=== PATIENT | female | born 1950 | race African-American/Black ===

== ENCOUNTER 2017-04-13 07:57 | Emergency (ER) | payer MEDICAID ==
[~2017-04-13] VITALS: Ht 182.9 cm; Wt 87.5 kg
[~2017-04-13 07:57] MED LIST: INSLANTI SC; METO-5 PO
[2017-04-13 08:55] VITALS: BP 200/77
[2017-04-13] MEDS ORDERED: HYDROcodone-ACET 5/325MG TAB PO ONE (09:15)
== END 2017-04-13 09:31 | disposition home or self-care (01) ==
LOC: ER 07:57
DX: S83.91XA Sprain of unspecified site of right knee, initial encounter (principal); I10 Essential (primary) hypertension; J45.909 Unspecified asthma, uncomplicated; E11.9 Type 2 diabetes mellitus without complications; F17.210 Nicotine dependence, cigarettes, uncomplicated; W10.9XXA Fall (on) (from) unspecified stairs and steps, initial encounter; Y93.89 Activity, other specified; Y92.89 Other specified places as the place of occurrence of the external cause; Y99.8 Other external cause status; Z88.6 Allergy status to analgesic agent
CPT/HCPCS: 73562

== ENCOUNTER 2017-08-11 06:10 | Inpatient (IN) | payer MEDICAID ==
[~2017-08-11] VITALS: Ht 170.2 cm; Wt 88.5 kg
[2017-08-11 07:03] LABS: Basophils # (auto) 0 uL; Basophils % (auto) 0.6 % (0.0-2.0); Eosinophils # (auto) 0.2 uL; Eosinophils % (auto) 2.7 % (0.0-7.0); Hematocrit 40.3 % (36.0-46.0); Hemoglobin 13.4 g/dL (12.2-16.2); Lymphocytes # (auto) 1.7 uL; Lymphocytes % (auto) 22.7 % (10.0-50.0); Mean Corpuscular Hgb Conc. 33.1 g/dL (32.0-36.0); Mean Corpuscular Volume 93.7 fL (80.0-100.0); Monocytes # (auto) 0.4 uL; Monocytes % (auto) 5.5 % (0.0-12.0); Neutrophils # (auto) 5.3 uL; Neutrophils % (auto) 68.5 % (37.0-80.0); Nucleated Red Blood Cells % 0.1 %; Platelet Count (auto) 245 10^3/uL (140-450); Red Blood Cells 4.31 10^6/uL (4.0-5.20); Red Cell Distribution Width 12.9 % (11.8-14.3); White Blood Cell 7.7 10^3/uL (4.4-10.8)
[2017-08-11 07:33] LABS: Albumin 2.6 g/dL (3.4-5.0); Bilirubin, Total 0.6 mg/dL (0.2-1.0); Calcium 8.2 mg/dL (8.5-10.1); Magnesium 2.4 mg/dL (1.6-2.6); Potassium 3.7 mmol/L (3.5-5.1); Total Protein 6.8 g/dL (6.4-8.2)
[2017-08-11] MEDS ORDERED: SODIUM CHLORIDE 0.9% 1,000 ML IV ONE ×2 (07:42)
[2017-08-11] MEDS ORDERED: cefTRIAXone W LIDOCAINE 1 GM IM IM ONE (07:45)
[2017-08-11] MEDS ORDERED: ENOXAPARIN SOD 100 MG/1 ML SYRINGE SC ONE (07:45)
[2017-08-11] MEDS ORDERED: ASPirin 81 mg TAB PO ONE (07:45)
[2017-08-11] MEDS ORDERED: cefTRIAXone 1GM/10ml IVPUSH 10 ML IV ONE (08:30)
[2017-08-11 08:31] LABS: INR 0.91 (0.9-1.15); Partial Thromboplastin Time 26.7 sec (22.64-33.71); Prothrombin Time 9.9 sec (9.37-12.3)
[2017-08-11] MEDS ORDERED: LORazepam 0.5 MG TAB PO PRN (10:00)
[2017-08-11] MEDS ORDERED: TEMAZEPAM 15 MG CAP PO PRN (10:00)
[2017-08-11] MEDS ORDERED: LACTULOSE 20Gm/30ML SOLN PO PRN (10:00)
[2017-08-11] MEDS ORDERED: NITROGLYCERIN 0.4 MG SL TAB SL PRN (10:00)
[2017-08-11] MEDS ORDERED: PROMETHAZINE HCL 25 MG/ML 1ML IV PRN (10:00)
[2017-08-11] MEDS ORDERED: DEXTROSE (50%) 50ML SYRG IV PRN (10:00)
[2017-08-11] MEDS ORDERED: MORPHINE SULFATE 4 MG/ML SYR/VIAL IV PRN ×2 (10:00)
[2017-08-11] MEDS ORDERED: cloNIDine HCL 0.1 MG TAB PO ONE (10:15)
[2017-08-11] MEDS: NITROGLYCERIN 0.2MG/HR TOPICAL PATCH TD SCH (10:19)
[2017-08-11] MEDS: PANTOPRAZOLE 40 MG TAB PO SCH (10:19)
[2017-08-11] MEDS: ENALAPRIL MALEATE 10 MG TAB PO SCH (10:19)
[2017-08-11 11:07] LABS: CRP High Sensitivity 0.86 mg/dL (< 0.3)
[2017-08-11] MEDS: InsuLIN REG 1unit/0.01ml Soln (100units/ml) SC SCH ×3 (11:19→22:00)
[2017-08-11] MEDS: ACCU-CHEK COMFORT CURVE STRIP VI SCH ×3 (11:19→22:00)
[2017-08-11] MEDS ORDERED: hydrALAZINE HCL 20 MG/ML VL IV ONE (11:30)
[2017-08-11] MEDS ORDERED: hydrALAZINE HCL 20 MG/ML VL IV PRN ×2 (11:30)
[2017-08-11 11:55] LABS: Folate (Folic Acid) 10.1 ng/mL (5.38-24)
[2017-08-11] MEDS: SODIUM CHLOR 0.9% PF (SALINE LOCK) 10ML VIAL IV SCH ×3 (14:12→23:31)
[2017-08-11] MEDS: ATORVASTATIN 20 MG TAB PO SCH (22:00)
[2017-08-11] MEDS: ENOXAPARIN SOD 80 MG/0.8ML SYRINGE SC SCH (22:00)
[2017-08-12 00:50] LABS: Urine Bacteria FEW /hpf (None Seen); Urine Blood Negative /uL (Negative); Urine Specific Gravity 1.003 (1.001-1.035); Urine WBC 2 /hpf (0 - 5)
[2017-08-12 01:09] LABS: Alcohol, Urine < 3.0 mg/dL (0-5); Amphetamine Screen, Urine NEGATIVE (NEGATIVE); Barbiturate Scree,Urine NEGATIVE (NEGATIVE); Benzodiazephine Screen, Urine NEGATIVE (NEGATIVE); Cannabinoid Screen, Urine NEGATIVE (NEGATIVE); Cocaine Screen, Urine NEGATIVE (NEGATIVE); Opiate Scree,Urine NEGATIVE (NEGATIVE); Phencyclidine Screen, Urine NEGATIVE (NEGATIVE)
[2017-08-12] MEDS: MORPHINE SULFATE 4 MG/ML SYR/VIAL IV PRN ×2 (05:32→15:28)
[2017-08-12 06:32] LABS: Basophils # (auto) 0 uL; Basophils % (auto) 0.5 % (0.0-2.0); Eosinophils # (auto) 0.1 uL; Eosinophils % (auto) 1.5 % (0.0-7.0); Hematocrit 39.8 % (36.0-46.0); Hemoglobin 13.3 g/dL (12.2-16.2); Lymphocytes # (auto) 1.5 uL; Lymphocytes % (auto) 20.4 % (10.0-50.0); Mean Corpuscular Hemoglobin 31.2 pg (28.0-32.0); Mean Corpuscular Hgb Conc. 33.5 g/dL (32.0-36.0); Mean Corpuscular Volume 93.2 fL (80.0-100.0); Monocytes # (auto) 0.4 uL; Neutrophils # (auto) 5.5 uL; Neutrophils % (auto) 72.6 % (37.0-80.0); Nucleated Red Blood Cells % 0.1 %; Platelet Count (auto) 228 10^3/uL (140-450); Red Blood Cells 4.27 10^6/uL (4.0-5.20); Red Cell Distribution Width 12.8 % (11.8-14.3); White Blood Cell 7.5 10^3/uL (4.4-10.8)
[2017-08-12 06:54] LABS: Albumin 2.7 g/dL (3.4-5.0); BUN/Creatinine Ratio 10.3; Bilirubin, Total 0.8 mg/dL (0.2-1.0); Potassium 3.6 mmol/L (3.5-5.1); Total Protein 6.8 g/dL (6.4-8.2)
[2017-08-12] MEDS: InsuLIN REG 1unit/0.01ml Soln (100units/ml) SC SCH ×4 (07:00→21:43)
[2017-08-12] MEDS: ACCU-CHEK COMFORT CURVE STRIP VI SCH ×4 (07:00→21:43)
[2017-08-12] MEDS: ENALAPRIL MALEATE 10 MG TAB PO SCH (10:05)
[2017-08-12] MEDS: ENOXAPARIN SOD 80 MG/0.8ML SYRINGE SC SCH ×2 (10:05→21:27)
[2017-08-12] MEDS: NITROGLYCERIN 0.2MG/HR TOPICAL PATCH TD SCH (10:05)
[2017-08-12] MEDS: PANTOPRAZOLE 40 MG TAB PO SCH (10:05)
[2017-08-12] MEDS: SODIUM CHLOR 0.9% PF (SALINE LOCK) 10ML VIAL IV SCH ×2 (14:18→21:27)
[2017-08-12 17:00] VITALS: BP 156/84
[2017-08-12 17:26] VITALS: BP 156/84
[2017-08-12 20:16] VITALS: BP 149/78
[2017-08-12] MEDS: ATORVASTATIN 20 MG TAB PO SCH (21:27)
[2017-08-13] VITALS (7 sets, daily range): BP systolic 145–179; BP diastolic 60–81
[2017-08-13] MEDS: SODIUM CHLOR 0.9% PF (SALINE LOCK) 10ML VIAL IV SCH ×3 (06:21→21:57)
[2017-08-13] MEDS: ACCU-CHEK COMFORT CURVE STRIP VI SCH ×4 (06:24→21:57)
[2017-08-13] MEDS: InsuLIN REG 1unit/0.01ml Soln (100units/ml) SC SCH ×4 (06:27→21:57)
[2017-08-13] MEDS: ENALAPRIL MALEATE 10 MG TAB PO SCH (09:42)
[2017-08-13] MEDS: PANTOPRAZOLE 40 MG TAB PO SCH (09:42)
[2017-08-13] MEDS: NITROGLYCERIN 0.2MG/HR TOPICAL PATCH TD SCH (09:42)
[2017-08-13] MEDS: ENOXAPARIN SOD 80 MG/0.8ML SYRINGE SC SCH ×2 (09:43→21:57)
[2017-08-13] MEDS ORDERED: LORazepam 0.5 MG TAB PO ONE (12:15)
[2017-08-13] MEDS ORDERED: LORazepam 0.5 MG TAB PO PRN (12:15)
[2017-08-13] MEDS: ATORVASTATIN 20 MG TAB PO SCH (21:57)
[2017-08-14 05:00] VITALS: BP 164/77
[2017-08-14] MEDS: SODIUM CHLOR 0.9% PF (SALINE LOCK) 10ML VIAL IV SCH (05:43)
[2017-08-14] MEDS: ACCU-CHEK COMFORT CURVE STRIP VI SCH ×2 (07:00→11:38)
[2017-08-14] MEDS: InsuLIN REG 1unit/0.01ml Soln (100units/ml) SC SCH ×2 (07:00→11:38)
[2017-08-14 09:00] VITALS: BP 154/76
[2017-08-14] MEDS ORDERED: ADENOSINE 74 MG in GIVE UN-DILUTED 0 ML IV ONE (09:15)
[2017-08-14] MEDS ORDERED: ALBUTEROL SULF 2.5 MG/0.5ML(0.5%) NEB SOLN ONE (09:27)
[2017-08-14] MEDS ORDERED: IPRATROPIUM BROM 0.5 MG/2.5ML INH SOL ONE (09:27)
[2017-08-14] MEDS ORDERED: ASPirin 81 mg TAB PO SCH (10:00)
[2017-08-14] MEDS: ENALAPRIL MALEATE 10 MG TAB PO SCH (10:00)
[2017-08-14] MEDS: NITROGLYCERIN 0.2MG/HR TOPICAL PATCH TD SCH (10:00)
[2017-08-14] MEDS: PANTOPRAZOLE 40 MG TAB PO SCH (10:00)
[2017-08-14] MEDS: ENOXAPARIN SOD 80 MG/0.8ML SYRINGE SC SCH (10:00)
[2017-08-14] MEDS ORDERED: cloNIDine HCL 0.1 MG TAB ONE (10:04)
[2017-08-14 10:10] VITALS: BP 188/137
[2017-08-14 12:00] VITALS: BP 145/57
[2017-08-14 12:23] VITALS: BP 188/137
== END 2017-08-14 13:30 | disposition home or self-care (01) | DRG 199 ==
LOC: ER 06:10 → TELE 06:11 → DOU IN ICU 08-12 17:01 → TELE-EAST 08-13 13:07
PROVIDERS: ADMIT Internal Medicine; ATTEND Internal Medicine
DX: I16.0 Hypertensive urgency (principal); I24.9 Acute ischemic heart disease, unspecified; I50.1 Left ventricular failure, unspecified; E44.0 Moderate protein-calorie malnutrition; E11.22 Type 2 diabetes mellitus with diabetic chronic kidney disease; I13.0 Hypertensive heart and chronic kidney disease with heart failure and stage 1 through stage 4 chronic kidney disease, or unspecified chronic kidney disease; N18.3 Chronic kidney disease, stage 3 (moderate); F41.1 Generalized anxiety disorder; F17.210 Nicotine dependence, cigarettes, uncomplicated; F41.9 Anxiety disorder, unspecified; I25.10 Atherosclerotic heart disease of native coronary artery without angina pectoris; K59.00 Constipation, unspecified; G47.00 Insomnia, unspecified; I49.3 Ventricular premature depolarization; J45.909 Unspecified asthma, uncomplicated; Z82.49 Family history of ischemic heart disease and other diseases of the circulatory system; Z83.3 Family history of diabetes mellitus; Z88.8 Allergy status to other drugs, medicaments and biological substances; Z88.6 Allergy status to analgesic agent; Z79.4 Long term (current) use of insulin; Z90.89 Acquired absence of other organs; Z68.30 Body mass index [BMI] 30.0-30.9, adult
CPT/HCPCS: 36415; 70450; 71045; 80053; 80061; 80307; 81001; 82550; 82607; 82746; 82962; 83036; 83735; 83880; 84443; 84484; 85025; 85379; 85610; 85652; 85730; 86141; 87081; 93005; 93017; 93306; 93886; 96361; 96374; J0153; J0696; J1815

== ENCOUNTER 2018-03-24 16:31 | Emergency (ER) | payer MEDICAID, OTHER ==
[~2018-03-24] VITALS: Ht 182.9 cm; Wt 83.9 kg
[2018-03-24 18:40] VITALS: BP 194/67
[2018-03-26] MEDS ORDERED: LORA-654 PO (16:36)
[2018-03-26] MEDS ORDERED: POTA10TA51 PO (16:36)
[2018-03-26] MEDS ORDERED: ENAL5TAB85 PO (16:36)
[2018-03-26] MEDS ORDERED: ASPI-231 PO (16:36)
[2018-03-26] MEDS ORDERED: ENA2.5T PO (16:36)
== END 2018-03-25 00:13 | disposition left against medical advice (07) ==
LOC: ER 16:40
DX: R05 Cough (principal); Z53.21 Procedure and treatment not carried out due to patient leaving prior to being seen by health care provider

== ENCOUNTER 2018-03-26 09:41 | Inpatient (IN) | payer OTHER, MEDICAID ==
[~2018-03-26] VITALS: Ht 172.7 cm; Wt 91.8 kg
[2018-03-26] MEDS ORDERED: ALBUTEROL SULF 2.5 MG/0.5ML(0.5%) NEB SOLN NEB ONE (10:15)
[2018-03-26] MEDS ORDERED: methylPREDNISolone SOD SUCC 125 MG/2 ML VL IM ONE (10:15)
[2018-03-26] MEDS ORDERED: IPRATROPIUM BROM 0.5 MG/2.5ML INH SOL NEB ONE (10:15)
[2018-03-26] MEDS ORDERED: cefTRIAXone SOD 1,000 MG VL IM ONE (10:45)
[2018-03-26] MEDS ORDERED: cloNIDine HCL 0.1 MG TAB ONE (10:47)
[2018-03-26 10:50] LABS: Basophils # (auto) 0 uL; Basophils % (auto) 0.4 % (0.0-2.0); Eosinophils # (auto) 0.1 uL; Eosinophils % (auto) 1.4 % (0.0-7.0); Hematocrit 38.6 % (36.0-46.0); Hemoglobin 13.1 g/dL (12.2-16.2); Lymphocytes # (auto) 1.3 uL; Lymphocytes % (auto) 17.2 % (10.0-50.0); Mean Corpuscular Hemoglobin 31.7 pg (28.0-32.0); Mean Corpuscular Hgb Conc. 33.8 g/dL (32.0-36.0); Mean Corpuscular Volume 93.5 fL (80.0-100.0); Monocytes # (auto) 0.5 uL; Monocytes % (auto) 7.1 % (0.0-12.0); Neutrophils # (auto) 5.7 uL; Neutrophils % (auto) 73.9 % (37.0-80.0); Platelet Count (auto) 233 10^3/uL (140-450); Red Blood Cells 4.12 10^6/uL (4.0-5.20); Red Cell Distribution Width 12.4 % (11.8-14.3); White Blood Cell 7.7 10^3/uL (4.4-10.8)
[2018-03-26 11:00] LABS: Albumin 2.8 g/dL (3.4-5.0); Calcium 8.5 mg/dL (8.5-10.1); Magnesium 2.2 mg/dL (1.6-2.6); Potassium 3.5 mmol/L (3.5-5.1)
[2018-03-26 11:08] LABS: BUN/Creatinine Ratio 7.7; Bilirubin, Total 0.9 mg/dL (0.2-1.0); Total Protein 7.5 g/dL (6.4-8.2)
[2018-03-26] MEDS ORDERED: ENOXAPARIN SOD 80 MG/0.8ML SYRINGE SC ONE (11:15)
[2018-03-26] MEDS ORDERED: ZOLPIDEM TARTRATE 5 MG TAB PO PRN (12:00)
[2018-03-26] MEDS ORDERED: NITROGLYCERIN 0.4 MG SL TAB SL PRN ×2 (12:00)
[2018-03-26] MEDS ORDERED: ONDANSETRON HCL 4 MG/2 ML VIAL IV PRN (12:00)
[2018-03-26] MEDS ORDERED: amLODIPine BESYLATE 5 MG TAB PO ONE (12:00)
[2018-03-26] MEDS ORDERED: DEXTROSE (50%) 50ML SYRG IV PRN (12:00)
[2018-03-26] MEDS: Glucerna Carbsteady SHAKE Vanilla 8oz PO SCH ×2 (12:00→18:27)
[2018-03-26] MEDS ORDERED: MORPHINE SULFATE 4 MG/ML SYR/VIAL IV PRN ×2 (12:00)
[2018-03-26] MEDS ORDERED: ALUM & MAG HYDROX-SIMETH LIQ(MAALOX) 30 ML PO ONE (12:00)
[2018-03-26] MEDS ORDERED: TRIAMTERENE/HCTZ 37.5/25 MG CAP/TAB PO ONE (12:15)
[2018-03-26 13:32] LABS: Urine Bacteria FEW /hpf (None Seen); Urine Blood Negative /uL (Negative); Urine Hyaline Cast FEW /lpf (0 - 2); Urine Specific Gravity 1.017 (1.001-1.035); Urine WBC 3 /hpf (0 - 5)
[2018-03-26] MEDS: SODIUM CHLOR 0.9% PF (SALINE LOCK) 10ML VIAL/SYR IV SCH ×2 (14:08→21:19)
[2018-03-26 14:15] VITALS: BP 160/75
[2018-03-26 16:00] VITALS: BP_SYST 146; BP_DIAS 42; BP_DIAS 62
[2018-03-26] MEDS ORDERED: LORA-654 PO (16:36)
[2018-03-26] MEDS ORDERED: ENA2.5T PO (16:36)
[2018-03-26] MEDS ORDERED: ENAL5TAB85 PO (16:36)
[2018-03-26] MEDS ORDERED: POTA10TA51 PO (16:36)
[2018-03-26] MEDS ORDERED: ASPI-231 PO (16:36)
[2018-03-26] MEDS: ACCU-CHEK COMFORT CURVE STRIP VI SCH ×2 (17:00→21:27)
[2018-03-26] MEDS: InsuLIN REG 1unit/0.01ml Soln (100units/ml) SC SCH ×2 (17:00→21:31)
[2018-03-26 17:18] VITALS: BP 146/42
[2018-03-26] MEDS: ALBUTEROL SULF 2.5 MG/0.5ML(0.5%) NEB SOLN NEB SCH (18:14)
[2018-03-26] MEDS: IPRATROPIUM BROM 0.5 MG/2.5ML INH SOL NEB SCH (18:15)
[2018-03-26 20:00] VITALS: BP 162/68
[2018-03-26] MEDS: CARVEDILOL 3.125 MG TAB PO SCH (21:20)
[2018-03-26] MEDS: ATORVASTATIN 20 MG TAB PO SCH (21:20)
[2018-03-26] MEDS: ENOXAPARIN SOD 80 MG/0.8ML SYRINGE SC SCH (21:21)
[2018-03-26] MEDS: ENALAPRIL MALEATE 2.5 MG TAB PO SCH (21:21)
[2018-03-26 23:54] VITALS: BP 150/54
[2018-03-27] MEDS: IPRATROPIUM BROM 0.5 MG/2.5ML INH SOL NEB SCH ×4 (00:19→19:11)
[2018-03-27] MEDS: ALBUTEROL SULF 2.5 MG/0.5ML(0.5%) NEB SOLN NEB SCH ×4 (00:19→19:10)
[2018-03-27] MEDS ORDERED: IBUPROFEN 600 MG TAB PO PRN (01:45)
[2018-03-27] MEDS: LORazepam 0.5 MG TAB PO PRN ×2 (02:51→22:15)
[2018-03-27 04:00] VITALS: BP 158/66
[2018-03-27] MEDS: ACCU-CHEK COMFORT CURVE STRIP VI SCH ×4 (06:36→23:20)
[2018-03-27] MEDS: SODIUM CHLOR 0.9% PF (SALINE LOCK) 10ML VIAL/SYR IV SCH ×3 (06:36→22:00)
[2018-03-27] MEDS: InsuLIN REG 1unit/0.01ml Soln (100units/ml) SC SCH ×4 (06:41→23:19)
[2018-03-27 06:44] LABS: Basophils # (auto) 0 uL; Basophils % (auto) 0.1 % (0.0-2.0); Eosinophils # (auto) 0 uL; Hematocrit 34.9 % (36.0-46.0); Hemoglobin 11.8 g/dL (12.2-16.2); Lymphocytes # (auto) 0.7 uL; Lymphocytes % (auto) 7.4 % (10.0-50.0); Mean Corpuscular Hemoglobin 31.7 pg (28.0-32.0); Mean Corpuscular Hgb Conc. 33.9 g/dL (32.0-36.0); Mean Corpuscular Volume 93.6 fL (80.0-100.0); Monocytes # (auto) 0.4 uL; Monocytes % (auto) 4.7 % (0.0-12.0); Neutrophils # (auto) 8.1 uL; Neutrophils % (auto) 87.8 % (37.0-80.0); Nucleated Red Blood Cells % 0.1 %; Platelet Count (auto) 216 10^3/uL (140-450); Red Blood Cells 3.73 10^6/uL (4.0-5.20); Red Cell Distribution Width 12.5 % (11.8-14.3); White Blood Cell 9.2 10^3/uL (4.4-10.8)
[2018-03-27 07:00] LABS: Albumin 2.1 g/dL (3.4-5.0); BUN/Creatinine Ratio 16.4; Calcium 8.3 mg/dL (8.5-10.1); Magnesium 1.8 mg/dL (1.6-2.6); Potassium 4.3 mmol/L (3.5-5.1)
[2018-03-27 07:05] LABS: Bilirubin, Total 0.4 mg/dL (0.2-1.0); Total Protein 6.3 g/dL (6.4-8.2)
[2018-03-27 08:00] VITALS: BP 167/77
[2018-03-27] MEDS: Glucerna Carbsteady SHAKE Vanilla 8oz PO SCH ×3 (08:10→17:52)
[2018-03-27] MEDS: cloNIDine HCL 0.1 MG TAB PO PRN (08:14)
[2018-03-27] MEDS: ENALAPRIL MALEATE 2.5 MG TAB PO SCH (09:39)
[2018-03-27] MEDS: CARVEDILOL 3.125 MG TAB PO SCH (09:40)
[2018-03-27] MEDS: ENOXAPARIN SOD 80 MG/0.8ML SYRINGE SC SCH ×2 (09:40→22:00)
[2018-03-27] MEDS: DOCUSATE SOD 100 MG CAP PO SCH (09:41)
[2018-03-27] MEDS: CLOPIDOGREL BISULFATE 75 MG TAB PO SCH (09:41)
[2018-03-27] MEDS: ASPirin 81 mg TAB PO SCH (09:41)
[2018-03-27] MEDS: TRIAMTERENE/HCTZ 37.5/25 MG CAP/TAB PO SCH (09:47)
[2018-03-27] MEDS ORDERED: amLODIPine BESYLATE 5 MG TAB PO SCH (10:00)
[2018-03-27] MEDS ORDERED: LIDOCAINE 2%HCL (LOCAL ANESTH.) INJ 20ML MDV ONE (10:35)
[2018-03-27] MEDS ORDERED: IODIXANOL 320MG/ML 100ML BTL IV ONE (10:35)
[2018-03-27] MEDS ORDERED: ACETYLCYSTEINE ORAL for CIN 20%(200MG/ML) 4ML PO ONE (10:45)
[2018-03-27] MEDS ORDERED: diphenhdrAMINE HCL 50 MG/1 ML VL IV ONE (10:45)
[2018-03-27] MEDS: SODIUM BICARBONATE 50ML VIAL 75 ML in D5W 5% 1,000 ML IV SCH (11:19)
[2018-03-27] MEDS ORDERED: fentaNYL CITRATE 100 MCG/2 ML VL ONE (12:11)
[2018-03-27] MEDS ORDERED: MIDAZOLAM HCL 1MG/1ML-2 ML VIAL ONE (12:11)
[2018-03-27] MEDS ORDERED: VERAPAMIL 2.5MG/ML INJ 2ML VIAL IV ONE (12:11)
[2018-03-27] MEDS ORDERED: SODIUM CHL 0.9% 0 ML ONE (12:11)
[2018-03-27] MEDS ORDERED: ANGIOMAX 250 MG VIAL IV ONE (12:11)
[2018-03-27 12:21] LABS: INR 0.91 (0.9-1.15); Partial Thromboplastin Time 30.7 sec (23.78-33.04); Prothrombin Time 9.8 sec (9.27-12.13)
[2018-03-27] MEDS ORDERED: HEPARIN SODIUM (PORCINE) 5000 UNITS/ML 1ML VIAL ONE (12:29)
[2018-03-27 15:59] VITALS: BP 145/51
[2018-03-27 19:50] VITALS: BP 142/45
[2018-03-27 21:00] VITALS: BP 152/63
[2018-03-27] MEDS ORDERED: ENALAPRIL MALEATE 2.5 MG TAB PO SCH (22:00)
[2018-03-27] MEDS: ATORVASTATIN 20 MG TAB PO SCH (22:00)
[2018-03-27] MEDS: ACETYLCYSTEINE ORAL for CIN 20%(200MG/ML) 4ML PO SCH (22:00)
[2018-03-28] MEDS: ALBUTEROL SULF 2.5 MG/0.5ML(0.5%) NEB SOLN NEB SCH ×3 (00:43→11:55)
[2018-03-28] MEDS: IPRATROPIUM BROM 0.5 MG/2.5ML INH SOL NEB SCH ×3 (00:44→11:55)
[2018-03-28 01:00] VITALS: BP 163/83
[2018-03-28 02:00] VITALS: BP 171/69
[2018-03-28] MEDS: cloNIDine HCL 0.1 MG TAB PO PRN (02:09)
[2018-03-28 03:10] VITALS: BP 172/67
[2018-03-28] MEDS: LORazepam 0.5 MG TAB PO PRN (03:17)
[2018-03-28] MEDS: SODIUM CHLOR 0.9% PF (SALINE LOCK) 10ML VIAL/SYR IV SCH ×2 (06:00→14:00)
[2018-03-28] MEDS: ACCU-CHEK COMFORT CURVE STRIP VI SCH ×2 (07:00→11:30)
[2018-03-28] MEDS: InsuLIN REG 1unit/0.01ml Soln (100units/ml) SC SCH ×2 (07:00→12:00)
[2018-03-28 08:00] VITALS: BP 155/67
[2018-03-28] MEDS: SODIUM BICARBONATE 50ML VIAL 75 ML in D5W 5% 1,000 ML IV SCH ×2 (08:15→12:25)
[2018-03-28] MEDS: Glucerna Carbsteady SHAKE Vanilla 8oz PO SCH ×2 (08:30→12:26)
[2018-03-28] MEDS ORDERED: NIFEdipine ER 30 MG TAB PO ONE (09:00)
[2018-03-28] MEDS ORDERED: amLODIPine BESYLATE 5 MG TAB PO SCH (10:00)
[2018-03-28] MEDS ORDERED: METOPROLOL SUCCINATE XL 50 MG TAB PO SCH (10:00)
[2018-03-28] MEDS: CLOPIDOGREL BISULFATE 75 MG TAB PO SCH (10:27)
[2018-03-28] MEDS: ASPirin 81 mg TAB PO SCH (10:27)
[2018-03-28] MEDS: DOCUSATE SOD 100 MG CAP PO SCH (10:27)
[2018-03-28] MEDS: ACETYLCYSTEINE ORAL for CIN 20%(200MG/ML) 4ML PO SCH (10:28)
[2018-03-28] MEDS: ENOXAPARIN SOD 80 MG/0.8ML SYRINGE SC SCH (10:28)
[2018-03-28] MEDS: TRIAMTERENE/HCTZ 37.5/25 MG CAP/TAB PO SCH (10:28)
[2018-03-28] MEDS ORDERED: INFLUENZA QUAD 2018-2019 0.5 ML SYRG IM ONE (10:45)
[2018-03-28] MEDS ORDERED: PNEUMOCOCCAL VACC POLYS 25 MCG/0.5 ML VIAL IM ONE (10:45)
[2018-03-28] MEDS ORDERED: MET5XLT PO (11:11)
[2018-03-28] MEDS ORDERED: NIF30XLT PO (11:11)
[2018-03-28] MEDS ORDERED: CLOP75TA28 PO (11:11)
[2018-03-28] MEDS ORDERED: ATOR20TA50 PO (11:11)
[2018-03-28] MEDS ORDERED: ASPI-231 PO (11:11)
[2018-03-28 11:27] LABS: BUN/Creatinine Ratio 17.7; Calcium 8.6 mg/dL (8.5-10.1); Potassium 4.1 mmol/L (3.5-5.1)
[2018-03-28 12:26] VITALS: BP 149/87
[2018-03-29] MEDS ORDERED: NIFEdipine ER 30 MG TAB PO SCH (10:00)
== END 2018-03-28 14:20 | disposition left against medical advice (07) | DRG 280 ==
LOC: ER 09:41 → EDBD 09:41 → TELE 09:42 → DOU IN ICU 13:31
PROVIDERS: ADMIT Internal Medicine; ATTEND Internal Medicine
PROC: 4A023N7 Measurement of Cardiac Sampling and Pressure, Left Heart, Percutaneous Approach (ICD-10-PCS; principal; 2018-03-27)
PROC: B2151ZZ Fluoroscopy of Left Heart using Low Osmolar Contrast (ICD-10-PCS; 2018-03-27)
PROC: B2111ZZ Fluoroscopy of Multiple Coronary Arteries using Low Osmolar Contrast (ICD-10-PCS; 2018-03-27)
DX: I21.4 Non-ST elevation (NSTEMI) myocardial infarction (principal); N17.0 Acute kidney failure with tubular necrosis; E44.0 Moderate protein-calorie malnutrition; I13.0 Hypertensive heart and chronic kidney disease with heart failure and stage 1 through stage 4 chronic kidney disease, or unspecified chronic kidney disease; J45.901 Unspecified asthma with (acute) exacerbation; I50.32 Chronic diastolic (congestive) heart failure; E11.21 Type 2 diabetes mellitus with diabetic nephropathy; D64.9 Anemia, unspecified; E11.22 Type 2 diabetes mellitus with diabetic chronic kidney disease; F41.9 Anxiety disorder, unspecified; F17.210 Nicotine dependence, cigarettes, uncomplicated; Z53.21 Procedure and treatment not carried out due to patient leaving prior to being seen by health care provider; I25.10 Atherosclerotic heart disease of native coronary artery without angina pectoris; N18.3 Chronic kidney disease, stage 3 (moderate); Z83.3 Family history of diabetes mellitus; Z91.19 Patient's noncompliance with other medical treatment and regimen; Z88.1 Allergy status to other antibiotic agents; Z88.5 Allergy status to narcotic agent; Z68.30 Body mass index [BMI] 30.0-30.9, adult
CPT/HCPCS: 36415; 71045; 80048; 80053; 80061; 81001; 82962; 83036; 83735; 83880; 84443; 84484; 85025; 85610; 85730; 87070; 87081; 87205; 93005; 93306; 93458; 94640; 96372; 99152; A6257; J0696; J1815; J2250; Q9967

== ENCOUNTER 2018-05-05 11:13 | Emergency (ER) | payer OTHER, MEDICAID ==
[~2018-05-05] VITALS: Ht 182.9 cm; Wt 88.9 kg
[~2018-05-05 11:13] MED LIST changes: +ASPI-231 PO; +ATOR20TA50 PO; +CLOP75TA28 PO; +ENA2.5T PO; +LORA-654 PO; +MET5XLT PO; -METO-5 PO; +NIF30XLT PO; +POTA10TA51 PO
[2018-05-05 12:03] LABS: Urine Bacteria FEW /hpf (None Seen); Urine Blood TRACE /uL (Negative); Urine Specific Gravity 1.014 (1.001-1.035); Urine WBC 3 /hpf (0 - 5)
[2018-05-05 12:04] LABS: Basophils # (auto) 0 uL; Basophils % (auto) 0.6 % (0.0-2.0); Eosinophils # (auto) 0.1 uL; Eosinophils % (auto) 1.5 % (0.0-7.0); Hematocrit 38.4 % (36.0-46.0); Hemoglobin 12.8 g/dL (12.2-16.2); Lymphocytes # (auto) 1.5 uL; Lymphocytes % (auto) 21.3 % (10.0-50.0); Mean Corpuscular Hemoglobin 30.9 pg (28.0-32.0); Mean Corpuscular Hgb Conc. 33.2 g/dL (32.0-36.0); Mean Corpuscular Volume 93.2 fL (80.0-100.0); Monocytes # (auto) 0.3 uL; Monocytes % (auto) 4.7 % (0.0-12.0); Neutrophils # (auto) 5.1 uL; Neutrophils % (auto) 71.9 % (37.0-80.0); Nucleated Red Blood Cells % 0.1 %; Platelet Count (auto) 247 10^3/uL (140-450); Red Blood Cells 4.12 10^6/uL (4.0-5.20); Red Cell Distribution Width 13.1 % (11.8-14.3); White Blood Cell 7.1 10^3/uL (4.4-10.8)
[2018-05-05 12:18] LABS: INR 0.91 (0.9-1.15); Partial Thromboplastin Time 25.9 sec (23.78-33.04); Prothrombin Time 9.8 sec (9.27-12.13)
[2018-05-05 12:22] LABS: Albumin 2.8 g/dL (3.4-5.0); Calcium 8.3 mg/dL (8.5-10.1); Potassium 3.5 mmol/L (3.5-5.1)
[2018-05-05 12:28] LABS: BUN/Creatinine Ratio 10.1; Bilirubin, Total 0.6 mg/dL (0.2-1.0); Total Protein 6.6 g/dL (6.4-8.2)
[2018-05-05] MEDS ORDERED: NITROGLYCERIN 50MG/250ML 250 ML IV ONE (12:33)
[2018-05-05] MEDS ORDERED: ENOXAPARIN SOD 100 MG/1 ML SYRINGE SC ONE (12:45)
[2018-05-05] MEDS ORDERED: ASPirin 81 mg TAB PO ONE (12:45)
[2018-05-05] MEDS ORDERED: NITROGLYCERIN 0.4 MG SL TAB SL ONE (12:45)
[2018-05-05] MEDS ORDERED: FUROSEMIDE 40 MG/4 ML VIAL IV ONE (12:45)
[2018-05-05 13:55] VITALS: BP 177/76
== END 2018-05-05 14:10 | disposition home or self-care (01) ==
LOC: ER 11:13
DX: I24.9 Acute ischemic heart disease, unspecified (principal); I11.0 Hypertensive heart disease with heart failure; I50.9 Heart failure, unspecified; J45.909 Unspecified asthma, uncomplicated; E11.9 Type 2 diabetes mellitus without complications; F17.210 Nicotine dependence, cigarettes, uncomplicated
CPT/HCPCS: 36415; 71045; 80053; 81001; 83880; 84484; 85025; 85610; 85730; 93005; 94761; 96372; 96374; 99284; J1650; J1940

== ENCOUNTER 2019-02-26 07:31 | Emergency (ER) | payer OTHER, MEDICAID ==
[~2019-02-26] VITALS: Ht 182.9 cm; Wt 87.5 kg
[~2019-02-26 07:31] MED LIST changes: -ENA2.5T PO; +ENAL2.5T2 PO; -LORA-654 PO; +LORA0.5T12 PO; -MET5XLT PO; +METO-6 PO; -NIF30XLT PO; +NIFE30TA77 PO
[2019-02-26] MEDS ORDERED: cloNIDine HCL 0.1 MG TAB PO ONE (07:45)
[2019-02-26 08:22] LABS: Basophils # (auto) 0 uL; Basophils % (auto) 0.7 % (0.0-2.0); Eosinophils # (auto) 0.1 uL; Eosinophils % (auto) 1.2 % (0.0-7.0); Hematocrit 37.5 % (36.0-46.0); Hemoglobin 12.6 g/dL (12.2-16.2); Lymphocytes # (auto) 0.9 uL; Lymphocytes % (auto) 13.5 % (10.0-50.0); Mean Corpuscular Hemoglobin 31.8 pg (28.0-32.0); Mean Corpuscular Hgb Conc. 33.6 g/dL (32.0-36.0); Mean Corpuscular Volume 94.7 fL (80.0-100.0); Monocytes # (auto) 0.3 uL; Monocytes % (auto) 4.8 % (0.0-12.0); Neutrophils # (auto) 5.6 uL; Neutrophils % (auto) 79.8 % (37.0-80.0); Nucleated Red Blood Cells % 0.1 %; Platelet Count (auto) 223 10^3/uL (140-450); Red Blood Cells 3.96 10^6/uL (4.0-5.20)
[2019-02-26 08:41] LABS: Albumin 3.1 g/dL (3.4-5.0); Calcium 8.7 mg/dL (8.5-10.1); Potassium 3.9 mmol/L (3.5-5.1)
[2019-02-26 08:46] LABS: BUN/Creatinine Ratio 10.9; Bilirubin, Total 0.9 mg/dL (0.2-1.0); Total Protein 6.9 g/dL (6.4-8.2)
[2019-02-26] MEDS ORDERED: ASPirin-EC 325mg tab PO ONE (09:45)
[2019-02-26] MEDS ORDERED: SODIUM CHLORIDE 0.9% 1,000 ML IV ONE (09:45)
[2019-02-26] MEDS ORDERED: ENOXAPARIN SOD 100 MG/1 ML SYRINGE SC ONE (09:45)
[2019-02-26 10:30] VITALS: BP 186/79
== END 2019-02-26 11:08 | disposition left against medical advice (07) ==
LOC: ER 07:31
DX: I24.9 Acute ischemic heart disease, unspecified (principal); I11.0 Hypertensive heart disease with heart failure; I50.9 Heart failure, unspecified; J45.909 Unspecified asthma, uncomplicated; E11.9 Type 2 diabetes mellitus without complications; E78.5 Hyperlipidemia, unspecified; F17.210 Nicotine dependence, cigarettes, uncomplicated; Z88.6 Allergy status to analgesic agent; Z79.82 Long term (current) use of aspirin; Z79.01 Long term (current) use of anticoagulants; Z79.899 Other long term (current) drug therapy; Z79.4 Long term (current) use of insulin; Z53.29 Procedure and treatment not carried out because of patient's decision for other reasons
CPT/HCPCS: 36415; 71045; 80053; 84484; 85025; 93005; 96372; 99284; J1650

== ENCOUNTER 2019-07-13 12:55 | Inpatient (IN) | payer OTHER, MEDICAID ==
[~2019-07-13] VITALS: Ht 182.9 cm; Wt 90.5 kg
[~2019-07-13 12:55] MED LIST changes: +NIFE1TAB36 PO; -NIFE30TA77 PO
[2019-07-13 13:48] LABS: Basophils # (auto) 0 uL; Basophils % (auto) 0.7 % (0.0-2.0); Eosinophils # (auto) 0.1 uL; Eosinophils % (auto) 1.3 % (0.0-7.0); Hematocrit 35.1 % (36.0-46.0); Hemoglobin 11.7 g/dL (12.2-16.2); Lymphocytes # (auto) 1.1 uL; Lymphocytes % (auto) 17.3 % (10.0-50.0); Mean Corpuscular Hemoglobin 30.7 pg (28.0-32.0); Mean Corpuscular Hgb Conc. 33.3 g/dL (32.0-36.0); Mean Corpuscular Volume 92.3 fL (80.0-100.0); Monocytes # (auto) 0.3 uL; Monocytes % (auto) 4.3 % (0.0-12.0); Neutrophils % (auto) 76.4 % (37.0-80.0); Nucleated Red Blood Cells % 0.1 %; Platelet Count (auto) 280 10^3/uL (140-450); Red Cell Distribution Width 13.3 % (11.8-14.3); White Blood Cell 6.5 10^3/uL (4.4-10.8)
[2019-07-13 13:53] LABS: INR 1.02 (0.9-1.15); Partial Thromboplastin Time 25.1 sec (23.64-32.05)
[2019-07-13 13:57] LABS: Albumin 2.9 g/dL (3.4-5.0); BUN/Creatinine Ratio 10.7; Calcium 8.3 mg/dL (8.5-10.1); Potassium 4.1 mmol/L (3.5-5.1)
[2019-07-13] MEDS ORDERED: cloNIDine HCL 0.1 MG TAB ONE (13:59)
[2019-07-13 14:02] LABS: Bilirubin, Total 0.8 mg/dL (0.2-1.0); Total Protein 6.6 g/dL (6.4-8.2)
[2019-07-13] MEDS ORDERED: cloNIDine HCL 0.1 MG TAB PO ONE (14:15)
[2019-07-13] MEDS ORDERED: ALPRAZolam 0.5 MG TAB PO ONE (15:15)
[2019-07-13] MEDS ORDERED: ALBUTEROL SULF 2.5 MG/0.5ML(0.5%) NEB SOLN NEB PRN (17:30)
[2019-07-13] MEDS ORDERED: HYDROcodone-ACET 5/325MG TAB PO PRN (17:30)
[2019-07-13] MEDS ORDERED: ONDANSETRON HCL 4 MG/2 ML VIAL IV PRN (17:30)
[2019-07-13] MEDS ORDERED: NITROGLYCERIN 0.4 MG SL TAB SL PRN (17:30)
[2019-07-13] MEDS ORDERED: IPRATROPIUM BROM 0.5 MG/2.5ML INH SOL NEB PRN (17:30)
[2019-07-13] MEDS ORDERED: ACETAMINOPHEN 500 MG TAB PO PRN (17:30)
[2019-07-13] MEDS ORDERED: LORazepam 0.5 MG TAB PO PRN (17:30)
[2019-07-13] MEDS ORDERED: MORPHINE SULF INJ 2 MG/ML SYRINGE 1ML IV PRN ×2 (17:30)
[2019-07-13] MEDS ORDERED: FUROSEMIDE 40 MG/4 ML VIAL IV ONE (17:30)
[2019-07-13 18:44] VITALS: BP 166/147
[2019-07-13 19:15] LABS: Urine Bacteria NONE SEEN /hpf (None Seen); Urine Blood Negative /uL (Negative); Urine Specific Gravity 1.011 (1.001-1.035); Urine WBC 1 /hpf (0 - 5)
[2019-07-13] MEDS: LABETALOL HCL 5 MG/ML 4ML SYRINGE IV PRN (19:19)
[2019-07-13 19:50] VITALS: BP 166/75
--- NOTE | 2019-07-13 19:50 | NUR ---
Telemetry admit from ER YULY SAUER admitted to Telemetry unit. Patient oriented to Freida Franz, primary RN, unit, room, bed, and unit policies regarding patient care and visiting hours. Patient now on continuous telemetry monitoring, tele box #[id number] and telemetry reading on arrival to unit is sinus rhythm. Patient weighed by bed scale and encouraged to call if they need something. All questions and concerns addressed, patient verbalized understanding.
--- NOTE | 2019-07-13 20:00 | NUR ---
med rec patient unable to verify home medications at this time. Patient does not recall names of medications and cannot verify what we have on file. Patient states, "nothing has changed", but cannot verify any medications.
[2019-07-13] MEDS: ENALAPRIL MALEATE 2.5 MG TAB PO SCH (21:25)
[2019-07-13 22:00] VITALS: BP 165/67
[2019-07-13] MEDS ORDERED: ATORVASTATIN 20 MG TAB PO SCH (22:00)
--- NOTE | 2019-07-14 03:55 | NUR ---
PATIENT COMPLAINS OF HEADACHE 10/19. CLARIFIED WITH PATIENT IF SHE HAS ANY ALLERGY TO TYLENOL, PATIENT STATES "NO I DON'T". TYLENOL 500MG GIVEN. WILL CONTINUE TO MONITOR FOR CHANGES.
[2019-07-14] MEDS: LABETALOL HCL 5 MG/ML 4ML SYRINGE IV PRN (04:19)
[2019-07-14 05:16] VITALS: BP 191/71
[2019-07-14 05:31] LABS: Basophils # (auto) 0 uL; Basophils % (auto) 0.8 % (0.0-2.0); Eosinophils # (auto) 0.1 uL; Eosinophils % (auto) 2.3 % (0.0-7.0); Hemoglobin 11.1 g/dL (12.2-16.2); Lymphocytes # (auto) 0.9 uL; Lymphocytes % (auto) 18.2 % (10.0-50.0); Mean Corpuscular Hgb Conc. 34.5 g/dL (32.0-36.0); Mean Corpuscular Volume 92.6 fL (80.0-100.0); Monocytes # (auto) 0.3 uL; Monocytes % (auto) 5.3 % (0.0-12.0); Neutrophils # (auto) 3.8 uL; Neutrophils % (auto) 73.4 % (37.0-80.0); Nucleated Red Blood Cells % 0.1 %; Platelet Count (auto) 238 10^3/uL (140-450); Red Blood Cells 3.46 10^6/uL (4.0-5.20); Red Cell Distribution Width 12.9 % (11.8-14.3); White Blood Cell 5.1 10^3/uL (4.4-10.8)
[2019-07-14 05:46] LABS: Potassium 3.6 mmol/L (3.5-5.1)
[2019-07-14 05:50] LABS: BUN/Creatinine Ratio 10.8; Calcium 8.2 mg/dL (8.5-10.1)
[2019-07-14 06:03] VITALS: BP 151/60
--- NOTE | 2019-07-14 06:37 | NUR ---
NO DIET ORDERED PATIENT NEEDS DIET ORDERED. WILL PAGE HOSPITALIST.
--- NOTE | 2019-07-14 07:45 | NUR ---
Opening Shift Note Assumed care of patient, awake and alert. No S/S of distress/SOB. C/O BILATERAL LEG pain. PER PT IT'S A CHRONIC PAIN. InSTructed on POC and to callfor assist PRN, will continue to monitor for changes Q1hr and PRN.
[2019-07-14 08:00] VITALS: BP 159/63
--- NOTE | 2019-07-14 08:10 | NUR ---
PT GIVEN NORCO, PO, FOR PAIN. TOLERATED WELL.
[2019-07-14] MEDS ORDERED: ASPirin-EC 81 mg tab PO SCH (10:00)
[2019-07-14] MEDS ORDERED: NIFEdipine ER 30 MG TAB PO SCH (10:00)
[2019-07-14] MEDS ORDERED: FAMOTIDINE 20 MG TAB PO SCH (10:00)
[2019-07-14] MEDS ORDERED: METOPROLOL SUCCINATE XL 50 MG TAB PO SCH (10:00)
[2019-07-14] MEDS: ENALAPRIL MALEATE 2.5 MG TAB PO SCH (10:00)
[2019-07-14] MEDS ORDERED: CLOPIDOGREL BISULFATE 75 MG TAB PO SCH (10:00)
[2019-07-14 10:18] VITALS: BP 151/63
--- NOTE | 2019-07-14 10:20 | NUR ---
PT NOTES DR FISCHER CAME TO SEE AND DISCHARGE THE PT. PT CALLED COMPLAINING OF PAIN ON BILATERAL LEGS. PT WAS IN TEARS STATING THAT HER LEG PAINS ARE SEVERE. PT WAS GIVEN NORCO ABOUT 2 HOURS AGO BUT IS ASKING FOR ANOTHER ONE. SHE ALSO WANTS TO LEAVE NOW. I INFORMED THE PATIENT THAT THE DOCTOR IS STILL PUTTING THE DISCHARGE ORDER AND THEN WE WILL TYPE HER DISCHARGE PAPER WORK SO SHE CAN GO. PT GOT UPSET STATING SHE DOESN'T WANT TO WAIT ANY LONGER. SHE WANTS HER PAIN MEDICATION AND SHE WANTS TO LEAVE NOW. I EXPLAINED TO PT THAT I ONLY HAVE MORPHINE IV AVAILABLE FOR PAIN BUT THAT SHE NEEDS TO STAY FOR LITTLE WHILE AFTER IT'S GIVEN, WHICH SHOULD WORK OUT SINCE WE STILL HAVE TO WRITE HER DC PAPERWORKS ANYWAY. PT STARTED YELLING, SAYING SHE'S NOT GOING TO STAY AND WAIT FOR THE DISCHARGE PAPERWORKS AND THAT WE ARE JUST LETTING HER BE IN PAIN. I INFORMED PT THAT A DISCHARGE NURSE IS WORKING ON HER PAPERWORKS AND I WILL COME BACK TO DC HER IV.
--- NOTE | 2019-07-14 10:45 | NUR ---
PT DISCHARGE NOTES PT SAW LEAVING HER AND WALKING TOWARDS THE ELEVATOR. I FOLLOWED THE PATIENT AND INFORMED HER THAT I HAVE HER DISCHARGE PAPERWORKS. PT REFUSED TO SIGN AND REFUSED THE PAPERWORKS. PT ALSO STATED SHE PULLED THE IV HERSELF ON HER RIGHT ARM. PT SHOWED ME HER ARM WHERE HER IV WAS. PT WAS HOLDING A TISSUE ON THE SITE WITH A LITTLE BLOOD NOTED. PT REFUSED TO HAVE ANYTHING DONE AND WENT IN THE ELEVATOR TO LEAVE.
== END 2019-07-14 10:45 | disposition home or self-care (01) | DRG 291 ==
LOC: EDBD 12:55 → ER 13:05 → TELE 13:06 → TELE-CENTR 21:40
PROVIDERS: ADMIT Nurse Practitioner Acute Care; ATTEND Nurse Practitioner Acute Care
DX: I13.0 Hypertensive heart and chronic kidney disease with heart failure and stage 1 through stage 4 chronic kidney disease, or unspecified chronic kidney disease (principal); I50.43 Acute on chronic combined systolic (congestive) and diastolic (congestive) heart failure; I31.3 Pericardial effusion (noninflammatory); J91.8 Pleural effusion in other conditions classified elsewhere; F41.1 Generalized anxiety disorder; F41.0 Panic disorder [episodic paroxysmal anxiety]; F17.210 Nicotine dependence, cigarettes, uncomplicated; E78.5 Hyperlipidemia, unspecified; E66.9 Obesity, unspecified; E11.22 Type 2 diabetes mellitus with diabetic chronic kidney disease; I25.10 Atherosclerotic heart disease of native coronary artery without angina pectoris; J44.9 Chronic obstructive pulmonary disease, unspecified; N18.3 Chronic kidney disease, stage 3 (moderate); Z79.02 Long term (current) use of antithrombotics/antiplatelets; Z79.4 Long term (current) use of insulin; Z79.82 Long term (current) use of aspirin; Z82.49 Family history of ischemic heart disease and other diseases of the circulatory system; Z91.19 Patient's noncompliance with other medical treatment and regimen; Z83.3 Family history of diabetes mellitus; F32.9 Major depressive disorder, single episode, unspecified; Z88.1 Allergy status to other antibiotic agents; Z88.5 Allergy status to narcotic agent
CPT/HCPCS: 36415; 70450; 71045; 80048; 80053; 81001; 83735; 83880; 84443; 84484; 85025; 85610; 85730; 87081; 93005; 96374; G0378; J3490

== ENCOUNTER 2021-09-12 01:16 | Inpatient (IN) | payer MEDICARE, MEDICAID ==
[2021-09-12] VITALS (35 sets, daily range): BP systolic 86–203; BP diastolic 21–105
[~2021-09-12] VITALS: Ht 175.3 cm; Wt 81.6 kg
[~2021-09-12 01:16] MED LIST changes: -ASPI-231 PO; +ASPI1TAB20 PO; +ENAL2.5T11 PO; -ENAL2.5T2 PO; -LORA0.5T12 PO; +LORA0.5T20 PO
[2021-09-12 03:05] LABS: Basophils # (auto) 0.1 10 ^3/uL (0-0.2); Basophils % (auto) 0.5 % (0.0-2.0); Eosinophils # (auto) 0 10 ^3/uL (0-0.8); Hematocrit 25.5 % (36.0-46.0); Hemoglobin 8.7 g/dL (12.2-16.2); Lymphocytes # (auto) 0.3 10 ^3/uL (0.4-5.4); Lymphocytes % (auto) 2.8 % (10.0-50.0); Mean Corpuscular Hemoglobin 31.2 pg (28.0-32.0); Mean Corpuscular Hgb Conc. 33.9 g/dL (32.0-36.0); Monocytes # (auto) 0.3 10 ^3/uL (0-1.3); Monocytes % (auto) 2.8 % (0.0-12.0); Neutrophils # (auto) 10.8 10 ^3/uL (1.6-8.6); Neutrophils % (auto) 93.9 % (37.0-80.0); Nucleated Red Blood Cells % 0.6 %; Red Blood Cells 2.77 10^6/uL (4.0-5.20); Red Cell Distribution Width 15.1 % (11.8-14.3); White Blood Cell 11.5 10^3/uL (4.4-10.8)
[2021-09-12 03:18] LABS: INR 1.4 (0.9-1.15); Partial Thromboplastin Time 23.1 sec (23.6-33.0)
[2021-09-12 03:20] LABS: Albumin 2.8 g/dL (3.4-5.0); Anion Gap 17 (5-15); Blood Urea Nitrogen 75 mg/dL (7-18); Calcium 8.5 mg/dL (8.5-10.1); Carbon Dioxide 20 mmol/L (21-32); Chloride 95 mmol/L (98-107); Glucose 222 mg/dL (74-106); Magnesium 2.7 mg/dL (1.6-2.6); Sodium 132 mmol/L (136-145)
[2021-09-12 03:22] LABS: Alanine Aminotransferase 46 U/L (13-56); Aspartate Aminotransferase 47 U/L (15-37); GFR African American 5 mL/min; GFR Non-African American 4 mL/min
[2021-09-12 03:27] LABS: Lactic Acid w/Reflex 2.4 mmol/L (0.4-2.0)
[2021-09-12 03:30] LABS: Potassium 5.8 mmol/L (3.5-5.1)
[2021-09-12 03:41] LABS: Alkaline Phosphatase 175 U/L (45-117); Bilirubin, Total 0.8 mg/dL (0.2-1.0); Total Protein 7.9 g/dL (6.4-8.2)
[2021-09-12] MEDS ORDERED: CALCIUM GLUC 1,000mg/50ml-NS 50 ML IV ONE ×3 (04:15→13:30)
[2021-09-12] MEDS ORDERED: InsuLIN REG 1unit/0.01ml Soln (100units/ml) IV ONE (04:15)
[2021-09-12] MEDS ORDERED: ALBUTEROL SULF 2.5 MG/0.5ML(0.5%) NEB SOLN NEB ONE (04:15)
[2021-09-12] MEDS ORDERED: FUROSEMIDE 40 MG/4 ML VIAL IV ONE (08:00)
[2021-09-12] MEDS ORDERED: NALOXONE HCL 0.4 MG/ML VIAL ONE ×2 (09:24→09:40)
[2021-09-12] MEDS ORDERED: ONDANSETRON HCL 4 MG/2 ML VIAL IV PRN (09:30)
[2021-09-12] MEDS ORDERED: MORPHINE SULFATE INJECTION 2 MG/ML SYRG IV PRN (09:30)
[2021-09-12] MEDS ORDERED: NITROGLYCERIN 0.4 MG SL TAB SL PRN (09:30)
[2021-09-12] MEDS ORDERED: NALOXONE HCL 0.4 MG/ML VIAL IV ONE (09:45)
[2021-09-12 09:47] LABS: Urine Bacteria FEW /hpf (None Seen); Urine Blood 2+ /uL (Negative); Urine Budding Yeast FEW /hpf (None Seen); Urine Hyaline Cast MOD /lpf (0 - 2); Urine Specific Gravity 1.025 (1.001-1.035); Urine WBC 20 /hpf (0 - 5); Urine WBC Clumps PRESENT /hpf (None Seen)
[2021-09-12] MEDS ORDERED: ATORVASTATIN 20 MG TAB PO SCH (10:00)
[2021-09-12] MEDS: PANTOPRAZOLE 40 MG/10 ML VIAL INJ IV SCH ×2 (10:00→21:48)
[2021-09-12] MEDS ORDERED: ASPirin 325 MG TAB PO SCH (10:00)
[2021-09-12] MEDS: TICAGRELOR 90 MG TAB PO SCH ×2 (10:00→21:49)
[2021-09-12] MEDS: DOPamine 1600MCG/ML D5W 250 ML IV SCH ×2 (10:10→15:16)
[2021-09-12] MEDS ORDERED: MIDAZOLAM DRIP 50 mg/50mL 50 ML IV ONE (10:15)
[2021-09-12] MEDS ORDERED: MIDAZOLAM DRIP 50 mg/50mL 50 ML IV SCH (10:15)
[2021-09-12] MEDS: MIDAZOLAM DRIP 50 mg/50mL 50 ML IV SCH ×2 (10:24→20:15)
[2021-09-12 10:52] LABS: Albumin 2.7 g/dL (3.4-5.0); Calcium 9.4 mg/dL (8.5-10.1); Potassium 5.4 mmol/L (3.5-5.1)
[2021-09-12 10:56] LABS: BUN/Creatinine Ratio 6.9; Bilirubin, Total 0.6 mg/dL (0.2-1.0); Total Protein 7.9 g/dL (6.4-8.2)
[2021-09-12] MEDS ORDERED: fentaNYL Drip 2500mCg/250mlNS 250 ML IV SCH (11:00)
[2021-09-12] MEDS ORDERED: PROPOFOL 100 ML IV SCH (11:00)
[2021-09-12] MEDS ORDERED: fentaNYL Drip 2500mCg/250mlNS 250 ML IV ONE (11:07)
[2021-09-12] MEDS ORDERED: NOREPINEPHRINE 8 MG/250ML KIT 250 ML IV ONE (11:36)
[2021-09-12] MEDS ORDERED: NOREPINEPHRINE 8 MG/250ML KIT 250 ML IV STA (12:44)
[2021-09-12] MEDS ORDERED: AMIODARONE 450mg/250ml AE 250 ML IV ONE (13:05)
[2021-09-12] MEDS ORDERED: SODIUM BICARBONATE 8.4 % INJ 50ML VIAL IV ONE ×3 (13:28→20:00)
[2021-09-12] MEDS ORDERED: CALCIUM CHLOR(10%) 100MG/ML 10ML SYRINGE IV ONE ×2 (13:29→16:46)
[2021-09-12] MEDS ORDERED: SODIUM BICARBONATE 50ML VIAL 150 ML in D5W 5% 1,000 ML IV SCH ×2 (13:30→22:30)
[2021-09-12] MEDS ORDERED: CALCIUM GLUC 4.65 MEQ/10ML 20 ML IV ONE (13:32)
[2021-09-12] MEDS ORDERED: EPINEPHrine HCL 250 ML IV SCH (13:45)
[2021-09-12] MEDS ORDERED: VASOPRESSIN 50 UNITS in D5W 5% 247.5 ML IV SCH (13:45)
[2021-09-12] MEDS: AMIODARONE 450mg/250ml AE 250 ML IV SCH ×2 (14:00→18:30)
[2021-09-12] MEDS ORDERED: PHENYLEPHRINE IV 250 ML IV SCH (14:30)
[2021-09-12] MEDS ORDERED: HEPARIN SODIUM (PORCINE) 5000 UNITS/ML 1ML VIAL IV ONE (14:30)
[2021-09-12] MEDS ORDERED: EPINEPHrine HCL 1 MG/10 ML SYRG IV ONE ×2 (16:46→23:21)
[2021-09-12] MEDS ORDERED: LIDOCAINE HCL 100 MG/5ML (2%) SYRG INJ IV ONE (16:46)
[2021-09-12] MEDS ORDERED: NOREPINEPHRINE BITARTRATE 32 MG in SODIUM CHL 0.9% 218 ML IV SCH (18:00)
[2021-09-12] MEDS ORDERED: AMIODARONE HCL 150 MG in D5W 5% 100 ML IV ONE (18:30)
[2021-09-12] MEDS ORDERED: SODIUM BICARBONATE 8.4% INJ 50ML SYRINGE ONE (19:36)
[2021-09-12 20:34] LABS: Hemoglobin 10.2 g/dL (12.2-16.2); Mean Corpuscular Hgb Conc. 32.4 g/dL (32.0-36.0); Red Cell Distribution Width 15.4 % (11.8-14.3)
[2021-09-12 20:36] LABS: Hematocrit 31.6 % (36.0-46.0); Mean Corpuscular Hemoglobin 30.8 pg (28.0-32.0); Mean Corpuscular Volume 95.1 fL (80.0-100.0); Red Blood Cells 3.32 10^6/uL (4.0-5.20)
[2021-09-12 20:39] LABS: White Blood Cell 33.4 10^3/uL (4.4-10.8)
[2021-09-12 20:40] LABS: Basophils % (manual) 0 (0.0-2.0); Blast Cells 0; Eosinophils % (manual) 0 (0-7); Myelocytes % 0; Promyelocytes % 0; Reactive Lymphocytes 0
[2021-09-12 20:55] LABS: Calcium 8.6 mg/dL (8.5-10.1); Potassium 4.9 mmol/L (3.5-5.1)
[2021-09-12 20:57] LABS: BUN/Creatinine Ratio 5.9
[2021-09-12] MEDS ORDERED: EPOETIN ALFA-EPBX 10,000 UNIT/1ML VIAL SC ONE (21:00)
[2021-09-12] MEDS ORDERED: VANCOMYCIN PER PHARMACY 0 MG IV SCH (21:15)
[2021-09-12] MEDS ORDERED: VANCOMYCIN 1GM/250ML 250 ML IV ONE (21:15)
[2021-09-12 21:48] LABS: Band Neutrophils % (manual) 11; Lymphocytes % (manual) 3 (10.0-50.0); Metamyelocytes % 2; Monocytes % (manual) 2 (0-12)
[2021-09-12] MEDS ORDERED: MEROPENEM 1GM IVPB 100 ML IV SCH (22:00)
[2021-09-12 22:56] LABS: Lactic Acid w/Reflex 15.5 mmol/L (0.4-2.0)
[2021-09-12] MEDS ORDERED: SODIUM BICARBONATE 8.4% INJ 50ML SYRINGE IV ONE (23:21)
[2021-09-13] MEDS ORDERED: AMIODARONE 450mg/250ml AE 250 ML IV SCH (00:30)
== END 2021-09-12 23:22 | DRG 208 ==
LOC: EDBD 01:16 → ER 01:19 → OVERFLOW 09:22 → ICU WEST 11:33
PROVIDERS: ADMIT Specialist; ATTEND Specialist
PROC: 5A1935Z Respiratory Ventilation, Less than 24 Consecutive Hours (ICD-10-PCS; principal; 2021-09-12)
PROC: 0BH17EZ Insertion of Endotracheal Airway into Trachea, Via Natural or Artificial Opening (ICD-10-PCS; 2021-09-12)
PROC: 5A1D70Z Performance of Urinary Filtration, Intermittent, Less than 6 Hours Per Day (ICD-10-PCS; 2021-09-12)
PROC: 5A12012 Performance of Cardiac Output, Single, Manual (ICD-10-PCS; 2021-09-12)
PROC: 02HV33Z Insertion of Infusion Device into Superior Vena Cava, Percutaneous Approach (ICD-10-PCS; 2021-09-12)
PROC: B548ZZA Ultrasonography of Superior Vena Cava, Guidance (ICD-10-PCS; 2021-09-12)
DX: J96.01 Acute respiratory failure with hypoxia (principal); G93.41 Metabolic encephalopathy; N18.6 End stage renal disease; G93.1 Anoxic brain damage, not elsewhere classified; I13.2 Hypertensive heart and chronic kidney disease with heart failure and with stage 5 chronic kidney disease, or end stage renal disease; I46.9 Cardiac arrest, cause unspecified; E11.22 Type 2 diabetes mellitus with diabetic chronic kidney disease; E78.5 Hyperlipidemia, unspecified; E87.5 Hyperkalemia; F17.210 Nicotine dependence, cigarettes, uncomplicated; I25.10 Atherosclerotic heart disease of native coronary artery without angina pectoris; I25.5 Ischemic cardiomyopathy; I48.91 Unspecified atrial fibrillation; E66.9 Obesity, unspecified; F32.A Depression, unspecified; F41.9 Anxiety disorder, unspecified; I50.9 Heart failure, unspecified; J44.9 Chronic obstructive pulmonary disease, unspecified; Z20.822 Contact with and (suspected) exposure to COVID-19; Z79.02 Long term (current) use of antithrombotics/antiplatelets; Z79.4 Long term (current) use of insulin; Z79.82 Long term (current) use of aspirin; Z82.49 Family history of ischemic heart disease and other diseases of the circulatory system; Z83.3 Family history of diabetes mellitus; Z86.73 Personal history of transient ischemic attack (TIA), and cerebral infarction without residual deficits; Z99.2 Dependence on renal dialysis; Z79.899 Other long term (current) drug therapy; Z68.26 Body mass index [BMI] 26.0-26.9, adult; Z88.1 Allergy status to other antibiotic agents; Z88.5 Allergy status to narcotic agent
CPT/HCPCS: 36415; 36600; 70450; 71045; 80048; 80053; 81001; 82805; 82962; 83605; 83735; 84484; 85007; 85025; 85027; 85610; 85730; 87040; 87070; 87081; 87205; 90935; 92950; 93005; 93306; 94002; 96365; 96367; 96368; 96375; C9113; G0378; J1642; J2185; J2250; J7060